=== PATIENT | male | born 1955 | race Caucasian/White ===

== ENCOUNTER → 2017-07-29 | Outpatient (CLI) | DX: Z01.812 Encounter for preprocedural laboratory examination (principal); Z01.810 Encounter for preprocedural cardiovascular examination; M16.12 Unilateral primary osteoarthritis, left hip; M79.609 Pain in unspecified limb; I10 Essential (primary) hypertension; I45.10 Unspecified right bundle-branch block; I44.4 Left anterior fascicular block ==

== ENCOUNTER 2017-08-15 05:13 | Inpatient (IN) | payer BC ==
[~2017-08-15] VITALS: Ht 175.3 cm; Wt 81.6 kg
[~2017-08-15 05:13] MED LIST: AMLO1TAB84 PO; ASPI81TA23 PO; COEN1CAP PO; LECI12002 PO; VITA200C3 PO
[2017-08-15] MEDS ORDERED: LACTATED RINGER'S 1000 ML IV PRN (05:45)
[2017-08-15] MEDS ORDERED: CHLORHEXIDINE GLUCONATE 4% SOLN 120 ML BTL TOPICAL SCH (05:45)
[2017-08-15] MEDS ORDERED: ceFAZolin 2 GM PREMIX 50 ML IV SCH (05:45)
[2017-08-15] MEDS ORDERED: POVIDONE IODINE 5% (ANTISEPSIS KIT) 4 APPLICATIONS EACH NARE PRN (05:45)
[2017-08-15] MEDS ORDERED: CHLORHEXIDINE GLUCONATE 2 % 1 PACK (2 CLOTHS) TOPICAL PRN (05:45)
[2017-08-15] MEDS ORDERED: METOPROLOL TARTRATE 25 MG TAB PO PRN (05:45)
[2017-08-15] MEDS ORDERED: SODIUM CHLORID 0.9% 500 ML IV PRN (05:45)
[2017-08-15] MEDS ORDERED: MIDAZOLAM HCL 2 MG/2 ML VIAL ONE (06:35)
[2017-08-15] MEDS ORDERED: ACETAMINOPHEN 1000 MG/100 ML 100 ML IV ONE (06:35)
[2017-08-15] MEDS ORDERED: BUPIVACAINE PF 0.75% DEX-WATER INJ 2 ML AMP ONE (06:36)
[2017-08-15] MEDS ORDERED: FAMOTIDINE 20 MG/2 ML VIAL ONE (06:36)
[2017-08-15] MEDS ORDERED: PROPOFOL 500 MG/50 ML INJ 50 ML ONE (06:37)
[2017-08-15] MEDS ORDERED: ZOLPIDEM TARTRATE 5 MG TAB PO PRN (07:00)
[2017-08-15] MEDS ORDERED: SODIUM CHLORIDE 0.9% IV SCH ×2 (07:00→10:00)
[2017-08-15] MEDS ORDERED: BISACODYL 10 MG SUPP RECTAL PRN (07:00)
[2017-08-15] MEDS ORDERED: TRANEXAMIC ACID IV SCH ×2 (07:00→10:00)
[2017-08-15] MEDS ORDERED: LECITHIN SOY PO SCH (07:00)
[2017-08-15] MEDS ORDERED: TRANEXAMIC ACID INJ 0 MG in SODIUM CHLORIDE 0.9% INJ 100 ML IV SCH (07:00)
[2017-08-15] MEDS ORDERED: LACTATED RINGER'S 1000 ML INJ 1,000 ML IV SCH (07:00)
[2017-08-15] MEDS ORDERED: EXPAREL PERI-ARTICULAR INJECTION (TOTAL VOL. 60 ML) P-ARTICULR SCH ×2 (07:00)
[2017-08-15] MEDS ORDERED: ACETAMINOPHEN/HYDROcodone 325 MG/7.5 MG TAB PO PRN (07:00)
[2017-08-15] MEDS ORDERED: Post-op Orders (for Pharmacy) XX ONE (07:00)
[2017-08-15] MEDS ORDERED: MAGNESIUM HYDROXIDE SUSP 30 ML CUP PO PRN (07:00)
[2017-08-15] MEDS ORDERED: ONDANSETRON HCL 4 MG/2 ML VIAL IVP PRN (07:00)
[2017-08-15] MEDS ORDERED: GENTAMICIN SULFATE 80 MG/2 ML VIAL IRRIGATION ONE (07:29)
[2017-08-15] MEDS ORDERED: MORPHINE SULFATE 4 MG/ML INJ IV PUSH PRN (07:30)
[2017-08-15] MEDS ORDERED: NON-FORMULARY DRUG (Coenzyme Q10 (Ubidecarenone) (Co Q-10) 1 CAP) PO SCH (09:00)
[2017-08-15] MEDS ORDERED: NON-FORMULARY DRUG (Amlodipine-Atorvastatin 1 TAB) PO SCH (09:00)
[2017-08-15] MEDS: ATORVASTATIN 40 MG TAB PO SCH (09:00)
[2017-08-15] MEDS: VITAMIN E 400 UNIT CAP PO SCH (09:00)
--- NOTE | 2017-08-15 09:03 | HHI.FF ---
Face to Face Verification Diagnosis: (1) Status post total replacement of left hip Physical Therapy Gait training Hip: Total hip, Protocol: Left, Posterior hip precautions, Progress to weight bearing Canvas Knee Splint: When in bed & 2 pillows btw thighs Left LE Weight Bearing: WB as tolerated Left LE Range of Motion: Active ROM Nursing Nursing: Dressing changes Dressing Changes: Daily dressing change (Do not remove Dermabond Prineo.), Coverderm/Primapore I have seen patient Naga Herrmann on 08/15/17. My clinical findings support the need for the requested home health care services because: Ltd mobility - disease progression Limited ability to care for self High risk of falls I certify that my clinical findings support that this patient is homebound because: Post-op weakness Unsteady gait/balance Unsafe to leave home unassisted Camden Woods MD (Charles) Aug 15, 2017 09:03
[2017-08-15] MEDS ORDERED: HYDR-3580 PO (09:05)
[2017-08-15] MEDS ORDERED: ECASA81 PO (09:05)
--- NOTE | 2017-08-15 09:16 | PD.OP ---
Operative Report Date of Surgery: Aug 15, 2017 Preoperative Diagnosis: (1) Primary osteoarthritis of left hip Postoperative Diagnosis: (1) Primary osteoarthritis of left hip Procedure: Left total hip arthroplasty using Beyer prosthesis. Anesthesia: Spinal with supplemental local with Exparel Surgeon: Leif Woods MD Associate Loan Officer(s): LADARIUS Piper Operation and Findings: Indications and Findings: This 62-year-old man has a 2 year history of left hip pain progressively worsening particularly over the past several months. This is limited his ambulation tolerance to 1/2 mile because of the pain. He has difficulty ascending and descending stairs, standing up from a seated chair and other activities. He has not responded to conservative measures including anti- inflammatory agents, analgesics, ambulatory aids, exercise and activity modification. Physical findings showed limited range of motion in the hip with tenderness on motion and crepitation. He had an antalgic gait. X-rays showed loss of articular cartilage to [id number] with osteophytes and eburnation. Operative findings: There is severe osteoarthritis in the left hip with some osteophytes, eburnation and loss of articular cartilage to [id number]. The femoral head was out of round. Implants: The acetabular component was a 54 mm Tritanium cluster shell with a 32 mm inner diameter, 0, X3 polyethylene liner. The femoral component was Accolade 2 size 4 with a 132 offset. The femoral head was 36 mm outer diameter , Biolox delta, -5 mm neck length. The patient was brought to the clean air operating suite and a spinal anesthetic was administered. The patient was then positioned into a lateral position with the operative hip up on a Clue App lateral positioner. The hip and lower extremity were then prepped with alcohol, Hibiclens and ChloraPrep and draped in the usual manner with the hip draped free. Patient received prophylactic antibiotics preoperatively. The patient also received tranexamic acid preoperatively. An appropriate timeout procedure was carried out. An incision was then made from the midportion of the greater trochanter proximally and posteriorly paralleling the fibers of the gluteus vladislav. The incision was deepened through subcutaneous tissues down to the fascia sheron and gluteus fascia. The gluteus fascia was then split longitudinally in line with its fibers up to the upper portion of the fascia sheron. With wound towels in place, the Charnley retractor was inserted. The sciatic nerve was identified and protected throughout the procedure. Dissection was then carried down to the interval between the gluteus minimus and the piriformis. A retractor was inserted. The piriformis and obturator conjoined tendon was released from the greater trochanter and reflected off the capsule. A capsulotomy was made longitudinally along the femoral neck to the base of the femoral neck and then curved distally along the posterior aspect of the greater trochanter. The hip was then internally rotated. Further release of the external rotators was carried out exposing the hip. The hip was then dislocated. The femoral neck was transected at the appropriate level using the oscillating saw placement of appropriate retractors. The femoral head was then removed. Preparation of the femur was initiated with a box osteotome followed by a curet to identify the medullary canal. Broaching was then initiated with the size 0 broach and went and 1 size increments up to size 4. The broach handle was removed. The femoral neck was then trimmed with a calcar planar. Attention was then directed to the acetabulum. Soft tissues were debrided from the acetabulum. Retractors were placed about the acetabulum. Reaming was then initiated with the 47 millimeter reamer and went in 1-2 mm increments up to the 53 millimeter diameter reamer. A trial reduction with the -5 millimeter trial prosthesis was carried out. When this was deemed to be appropriate, the trial prosthesis was removed. The acetabulum was then irrigated and cleaned. The actual prosthesis as noted above was then impacted into place and seated appropriately. Drill holes were then made and sounded. Appropriate sized screws were then inserted to stabilize the acetabulum further. The liner as noted above was then inserted into the acetabular shell and impacted into place. Osteophytes were trimmed from the acetabulum. Local anesthetic was then administered throughout the area of the acetabulum and anterior aspect of the femur. The trial neck was then placed on the broach for the above-noted prosthesis. The femoral head trial was placed onto the femoral neck . A trial reduction was then carried out. Adjustment was made as needed. The stability, leg length and motion were excellent. There was no pistoning. The trial prosthesis was removed. The broach was removed. The femoral component was then impacted into the medullary canal of the femur after irrigation and suctioning. When this was appropriately seated a trial reduction was again carried out with the trial prosthesis. Again, there was no pistoning. The leg length was appropriate. The stability and motion were excellent. The trial prosthesis was then removed. After cleaning and drying the trunion of the femoral component, the above-noted femoral head was impacted onto the trunnion. The hip was then reduced. The stability and mobility were again checked along with leg lengths as noted above. The hip was then positioned appropriately and closure commenced after the remainder of the local anesthetic was injected throughout the hip. The external rotators and capsule were then repaired with #1 Vicryl interrupted transosseous sutures with a Krakw technique to reattach the external rotators and capsule to the posterior aspect of the greater trochanter. The capsule itself on the superior aspect was closed with #1 Vicryl continuous lock sutures. The sciatic nerve was again inspected. The fascia sheron and gluteus fascia were then repaired with #1 Vicryl interrupted [id number] sutures. The subcutaneous tissues were closed with 2-0 Vicryl interrupted simple sutures with buried knots. The skin was closed with a continuous subcuticular closure of 4-0 Monocryl. The wound was then approximated with Dermabond Prineo. A dry dressing was applied to the hip. A knee immobilizer was applied to the leg. The patient was then transferred from the operating room to the recovery room in satisfactory condition having tolerated the procedure well. Counts are correct. Specimens: None. Estimated blood loss: 200 mL Camden Woods MD (Charles) Aug 15, 2017 09:15
[2017-08-15] MEDS ORDERED: DO NOT ADM ANY ANTICOAGULANT DRUGS PRN (09:45)
--- NOTE | 2017-08-15 09:52 | RADRPT ---
EXAM DATE: 08/15/2017 9:49 AM EDT AGE/SEX: 62 years / Male INDICATIONS: Post-op total left hip arthroplasty. CLINICAL DATA: This is the patient's initial encounter. Patient reports that signs and symptoms have been present for 1 day and indicates a pain score of 2/10. MEDICAL/SURGICAL HISTORY: Hypertension. Inguinal hernia repair. Tonsillectomy. COMPARISON: No prior [facility] exams available for comparison. FINDINGS: Left total hip arthroplasty. The acetabular component is secured with 2 osseous screws. Both femoral and acetabular components appear to be appropriately positioned without fracture or dislocation CONCLUSION: Appropriate postoperative appearance of the left hip status post total arthroplasty. Electronically signed by: Milton Henson MD 08/15/2017 9:51 AM EDT
[2017-08-15] MEDS: KETOROLAC TROMETHAMINE 30 MG/ML (IVP) VIAL IVP SCH ×3 (10:02→13:48)
[2017-08-15] MEDS ORDERED: DEXAMETHASONE SOD PHOS 4 MG/ML VIAL IV ONE (10:36)
[2017-08-15] MEDS ORDERED: ePHEDrine/NS 25 MG/5 ML SYRINGE IV ONE (10:36)
[2017-08-15] MEDS ORDERED: LACTATED RINGER'S 1000 ML INJ 1,000 ML IV ONE (10:36)
[2017-08-15] MEDS ORDERED: LIDOCAINE HCL 1% PF 5 ML SYRINGE OTHER ONE (10:36)
[2017-08-15] MEDS ORDERED: PROPOFOL 200 MG/20 ML AMP IV ONE (10:36)
--- NOTE | 2017-08-15 13:15 | PD.CONS ---
[facility] [place] [facility] By Dr. NICOLE Kent Reason for Consult opinion and recommendations on patient's Hyperlipidemia and hypertension Primary Care Physician Monty Parada MD Diagnoses: History of Present Illness 62-year-old white male with a history of osteoarthritis, hyperlipidemia hypertension who has had long history of left hip pain despite conservative treatment electively underwent a left total hip arthroplasty with Dr. Woods today. Patient reports his pain is overall controlled well today. Actually he also ambulated with physical therapy today postoperatively. He denies any problems with constipation. He has not had any blood in the stools or black stools. He is currently doing well with no other complaints at this time. Review of Systems Constitutional: DENIES: Fatigue, Fever, Chills, Change in appetite Endocrine: DENIES: Heat/cold intolerance Eyes: DENIES: Blurred vision, Eye pain, Vision loss Ears, nose, mouth, throat: DENIES: Hearing loss, Nasal discharge, Throat pain, Ear Pain, Sinus Pain Respiratory: DENIES: Cough, Shortness of breath Cardiovascular: DENIES: Chest pain, Palpitations, Dyspnea on Exertion, Lower Extremity Edema Gastrointestinal: DENIES: Abdominal pain, Black stools, Bloody stools, Constipation, Diarrhea, Nausea, Vomiting Musculoskeletal: COMPLAINS OF: Joint pain (Left hip pain), DENIES: Muscle aches , Stiffness Integumentary: DENIES: Rash Hematologic/lymphatic: DENIES: Bruising, Lymphadenopathy Immunologic/allergic: DENIES: Eczema Neurologic: DENIES: Headache, Localized weakness, Paresthesias Psychiatric: DENIES: Anxiety, Depression, Suicidal Ideation Past Family Social History Allergies: Coded Allergies: grass pollen (Unverified Allergy, Severe, SNEEZE, 08/15/17) Past Medical History Hyperlipidemia Hypertension Osteoarthritis Past Surgical History Tonsillectomy Left inguinal hernia repair Right fifth finger fracture Endoscopy due to foreign body obstruction Reported Medications Amlodipine 10 mg p.o. daily Atorvastatin 40 mg p.o. daily aspirin enteric-coated 81 mg p.o. daily coenzyme Q10 100 mg p.o. daily [place] 1 p.o. every 4 as needed for pain vitamin D Family History Mother had brain cancer Father had prostate cancer Social History Does not smoke cigarettes quit in 1981 Rarely drinks alcohol Physical Exam Vital Signs Vital Signs Date Time Temp Pulse Resp B/P (MAP) Pulse Ox O2 Delivery O2 Flow Rate FiO2 08/15/17 10:45 97.6 69 18 119/74 (89) 94 Room Air 08/15/17 10:30 66 18 126/77 (93) 94 Room Air 08/15/17 10:15 66 18 126/78 (94) 95 Room Air 08/15/17 10:00 64 18 135/80 (98) 95 Room Air 08/15/17 09:45 64 18 126/73 (90) 96 Room Air 08/15/17 09:30 69 18 122/69 (86) 94 Room Air 08/15/17 09:22 97.2 69 18 134/72 (92) 95 Room Air 08/15/17 05:45 98.6 69 16 125/80 (95) 99 Physical Exam GENERAL: This is a well-nourished, well-developed patient, in no apparent distress. SKIN: No rashes, ecchymoses or lesions. Cool and dry. HEAD: Atraumatic. Normocephalic. No temporal or scalp tenderness. EYES: Pupils equal round and reactive. Extraocular motions intact. No scleral icterus. No injection or drainage. ENT: Nose without bleeding, purulent drainage or septal hematoma. NECK: Trachea midline. CARDIOVASCULAR: Regular rate and rhythm without murmurs, gallops, or rubs. RESPIRATORY: Clear to auscultation. Breath sounds equal bilaterally. No wheezes , rales, or rhonchi. GASTROINTESTINAL: Abdomen soft, non-tender, nondistended. No hepato-splenomegaly , or palpable masses. No guarding. MUSCULOSKELETAL: Left hip bandage clean dry intact NEUROLOGICAL: Awake and alert to person place time. Cranial nerves II through XII intact. Motor and sensory grossly within normal limits. Five out of 5 muscle strength in all muscle groups. Normal speech. Imaging Last Impressions Hip X-Ray 08/15/17 0648 Signed Impressions: CONCLUSION: Appropriate postoperative appearance of the left hip status post total arthropl asty. Assessment and Plan Assessment and Plan 1. Status post left total hip arthroplastycontinue postoperative care, pain control, bowel regimen, physical therapy per orthopedic surgery Dr. Woods 2. Hypertension history chronic essential - blood pressure currently adequately controlled well - resume home amlodipine. Further recommendations based on blood pressure trends. 3. Hyperlipidemia resume home statin. 4. DVT prophylaxis per orthopedic surgery Thank you for the consultation Minna Easley MD Aug 15, 2017 13:15
[2017-08-15 16:00] VITALS: BP_SYST 136; BP_SYST 142; BP_DIAS 85; PULSE 77; PULSE 79; RESP 18; RESP 19; TEMP 97.6; TEMP 97.8; O2SAT 98; O2SAT 99
[2017-08-15 20:00] VITALS: BP 145/80; PULSE 69; RESP 17; TEMP 98.4; O2SAT 99
[2017-08-15] MEDS: ACETAMINOPHEN/HYDROcodone 325 MG/7.5 MG TAB PO PRN (20:51)
[2017-08-16] VITALS: BP 140/78; PULSE 75; RESP 17; TEMP 99.2; O2SAT 97
[2017-08-16 04:00] VITALS: BP 125/79; PULSE 64; RESP 16; TEMP 98; O2SAT 96
[2017-08-16] MEDS: KETOROLAC TROMETHAMINE 30 MG/ML (IVP) VIAL IVP SCH ×2 (04:10→09:39)
[2017-08-16 05:13] LABS: HEMATOCRIT 35.2 % (39.0-51.0); HEMOGLOBIN 11.9 GM/DL (13.0-17.0)
--- NOTE | 2017-08-16 06:10 | PD.ORT.PN ---
Subjective Post Op Day #: 1 Subjective Remarks He is doing well. He has minimal complaints related to his hip. There is no tenderness. He has been able to walk with a walker. Distance Walked 15 feet to the bathroom; then 145 feet with PT. Objective Vitals Vital Signs Date Time Temp Pulse Resp B/P (MAP) Pulse Ox O2 Delivery O2 Flow Rate FiO2 08/16/17 04:00 98.0 64 16 125/79 (94) 96 08/16/17 00:00 99.2 75 17 140/78 (98) 97 08/15/17 20:00 98.4 69 17 145/80 (101) 99 08/15/17 16:00 97.6 77 19 142/85 (104) 98 08/15/17 16:00 97.8 79 18 136/85 (102) 99 08/15/17 10:45 97.6 69 18 119/74 (89) 94 Room Air 08/15/17 10:30 66 18 126/77 (93) 94 Room Air 08/15/17 10:15 66 18 126/78 (94) 95 Room Air 08/15/17 10:00 64 18 135/80 (98) 95 Room Air 08/15/17 09:45 64 18 126/73 (90) 96 Room Air 08/15/17 09:30 69 18 122/69 (86) 94 Room Air 08/15/17 09:22 97.2 69 18 134/72 (92) 95 Room Air I/O 08/15/17 08/15/17 08/15/17 08/16/17 08/16/17 08/16/17 07:00 15:00 23:00 07:00 15:00 23:00 Intake Total 1508 ml Output Total 700 ml 1300 ml Balance 808 ml -1300 ml Intake IV Total 208 ml Other 1300 ml Output Urine Total 500 ml 1300 ml Estimated Blood Loss 200 ml # Voids 2 Result Diagram: 08/16/17 0426 Imaging Last 24 hours Impressions Hip X-Ray 08/15/17 0648 Signed Impressions: CONCLUSION: Appropriate postoperative appearance of the left hip status post total arthropl asty. Objective Remarks He is resting comfortably, supine in bed. The dressing is dry and intact. His neurovascular status is intact. Assessment & Plan Ortho Post Op Day #: 1 Problem List: (1) Primary osteoarthritis of left hip ICD Codes: M16.12 - Unilateral primary osteoarthritis, left hip Status: Resolved (2) Status post total replacement of left hip ICD Codes: Z96.642 - Presence of left artificial hip joint Plan: Continue postop care and PT. Assessment and Plan Condition: Good. Orthopedically stable. DVT prophylaxis: TEDs, aspirin, sequentials. Discharge plans: Home with home health care. An appointment was scheduled through the office. Prescriptions: Tionesta 7.5/325 Camden Woods MD (Charles) Aug 16, 2017 06:10
--- NOTE | 2017-08-16 06:20 | HHI.DS ---
Discharge Summary Admission Date Aug 15, 2017 at 05:13 Discharge Date: Aug 16, 2017 Admitting Diagnosis Primary osteoarthritis, left hip. Diagnosis: (1) Primary osteoarthritis of left hip Diagnosis: Principal ICD Codes: M16.12 - Unilateral primary osteoarthritis, left hip Status: Resolved (2) Status post total replacement of left hip Diagnosis: Principal ICD Codes: Z96.642 - Presence of left artificial hip joint Procedures Left total hip arthroplasty using Latanya prosthesis. Brief History This is a 62 year old male patient has had at least 2 year history of progressive worsening of left hip pain secondary to arthritis. His ambulation tolerance was markedly limited. His activities of living were accompanied by pain. His was nonresponsive to conservative measures including anti- inflammatory agents, analgesics, activity modification, ambulatory aids. Physical findings showed limited range of motion with tenderness on motion. He had an antalgic gait. Radiographic findings showed severe osteoarthritis with loss of articular cartilage to [id number], osteophytes and eburnation. CBC/BMP: 08/16/17 0426 Significant Findings Laboratory Tests Test 08/16/17 04:26 Hemoglobin 11.9 GM/DL (13.0-17.0) Hematocrit 35.2 % (39.0-51.0) Imaging Last 72 hours Impressions Hip X-Ray 08/15/17 0648 Signed Impressions: CONCLUSION: Appropriate postoperative appearance of the left hip status post total arthropl asty. PE at Discharge He is resting comfortably, supine in bed. The dressing is dry and intact. His neurovascular status is intact. Hospital Course The patient was admitted as noted above. The above noted operative procedure was carried out that day. Preoperatively prophylactic antibiotics were administered Ancef according to protocol. These were continued postoperatively. The patient also received tranexamic acid to help with hemostasis according to protocol. In the postanesthesia care unit mechanical methods of DVT prophylaxis in the form of HILDA stockings and sequentials were initiated. Physical therapy was initiated on the day of surgery. He was able to walk 145 feet with physical therapy. On postoperative day #1 physical therapy continued. DVT prophylaxis with aspirin 81 mg twice daily was initiated at this time. The patient continued physical therapy throughout the hospitalization. The distance walked and range of motion improved throughout the hospitalization. The patient was discharged on postoperative day 1 with the disposition being to home with home health care. An appointment for follow-up was made prior to admission. Pt Condition on Discharge: Good Discharge Disposition: Disch w/ Home Health Serv Discharge Instructions Diet Instructions: As Tolerated, No Restrictions Activities You Can Perform: Full Weight Bearing, Shower Only-No Bath Activities to Avoid: Lifting/Bending, Strenuous Activity, Bathing, Driving Follow up Referrals: Orthopedics with Camden Woods MD (Charles) New Medications: Aspirin (Aspirin DR) 81 Mg Tabdr 81 MG PO BID for Prevent Blood Clot for 30 Days, #60 TAB Hydrocodone/Acetaminophen (Hydrocodone-Acetamin 7.5-325) 7.5 Mg-325 Mg Tablet 1 TAB PO Q4H PRN for PAIN SCALE 1 TO 10, #30 TAB Continued Medications: Amlodipine-Atorvastatin (Amlodipine-Atorvastatin) 10-40 Mg Tab 1 TAB PO DAILY for Blood Pressure Management, #30 TAB 0 Refills Coenzyme Q10 (Ubidecarenone) (Co Q-10) 100 Mg Cap 1 CAP PO DAILY Lecithin, Soy (Lecithin) 1,200 Mg Capsule 1 TAB-CAP PO 2XWEEK Vitamin E (Vitamin E) 200 Unit Cap 400 UNITS PO DAILY for Nutritional Supplement, CAP 0 Refills Discontinued Medications: Aspirin (Aspirin EC) 81 Mg Tabdr 81 MG PO DAILY, TAB 0 Refills Camden Woods MD (Charles) Aug 16, 2017 06:20
[2017-08-16 08:00] VITALS: BP 145/82; PULSE 69; RESP 16; TEMP 98.6; O2SAT 100
[2017-08-16] MEDS ORDERED: ASPIRIN EC 81 MG TABEC PO SCH (09:00)
[2017-08-16] MEDS: ACETAMINOPHEN/HYDROcodone 325 MG/7.5 MG TAB PO PRN (09:38)
[2017-08-16] MEDS: ATORVASTATIN 40 MG TAB PO SCH (09:38)
[2017-08-16] MEDS: VITAMIN E 400 UNIT CAP PO SCH (09:39)
[2017-08-16] MEDS ORDERED: DOCUSATE SODIUM 100 MG CAP PO SCH (21:00)
== END 2017-08-16 10:37 | disposition home health service (06) | DRG 470 ==
LOC: HSDI 05:13 → N06A 11:05
PROVIDERS: ADMIT Orthopaedic Surgery; ATTEND Orthopaedic Surgery
PROC: 0SRB04A Replacement of Left Hip Joint with Ceramic on Polyethylene Synthetic Substitute, Uncemented, Open Approach (ICD-10-PCS; principal; 2017-08-15 06:40)
DX: M16.12 Unilateral primary osteoarthritis, left hip (principal); I10 Essential (primary) hypertension; E78.5 Hyperlipidemia, unspecified; Z80.42 Family history of malignant neoplasm of prostate; Z80.8 Family history of malignant neoplasm of other organs or systems; Z87.891 Personal history of nicotine dependence; Z79.82 Long term (current) use of aspirin
CPT/HCPCS: 73502; 85014; 85018; 86850; 86900; 86901; 94150; C1776; C9290; J0131; J0690; J1100; J1580; J1885; J2250; J3010; J7120; L1830